=== PATIENT | female | born 1955 | race Caucasian/White ===

== ENCOUNTER 2017-06-03 11:01 | Outpatient (CLI) | payer OTHER | END 2017-06-03 11:14 | disposition home or self-care (01) | LOC: RAD 11:01 | DX: R05 Cough (principal) ==

== ENCOUNTER → 2017-06-03 | Outpatient (CLI) | payer OTHER ==
[~2017-06-03] MED LIST: ALLEGRA ALLERG180 MG PO; AQUASOL E15 IU/0.3; BIOTIN5 MG; CALCIO DEL MAR500 MG; GILTUSS LIQUID237 M1; LOTRISONE CREAM45 GM TP; MECLIZINE HCL25 MG PO; OSTERA TABLET1 EACH; PROMETHAZINE W118 ML PO; TENCON TABLET1 TAB PO; TESSALON PERLE100 MG PO; ZYRTEC10 MG PO
== END | disposition home or self-care (01) ==
LOC: PPHC 10:09
DX: B34.9 Viral infection, unspecified (principal)